=== PATIENT | male | born 1970 | race Caucasian/White ===

== ENCOUNTER 2019-04-28 14:02 | Emergency (ER) | payer MEDICAID, SELFPAY ==
[2019-04-28 14:05] VITALS: BP 181/101; PULSE 73; RESP 16; TEMP 36.2; O2SAT 96; BMI 38.7
--- NOTE | 2019-04-28 15:05 | ED.DEP ---
ED Disposition - Plan for ED Patient: Instructions: HEADACHE, Unspecified Referrals: NOT,DEFINED [Primary Care Provider] -
--- NOTE | 2019-04-28 15:05 | ED.VISSUMM ---
- ER Visit Summary Date of Service: 04/28/19 Chief Complaint: Headache History of Present Illness: The patient is a 48 M presenting with headache. He states that this started this morning it was gradual in onset. He states he has a history of cluster headaches and this feels similar. He is currently on his way to the [facility] in [place]. He is requesting Zofran, Toradol, Imitrex. He states this typically improves his headache. He denies nausea or vomiting. Denies fever. Denies other complaints. Physical Examination: Vitals are stable. Patient is afebrile. Alert no acute distress. HEENT exam is unremarkable. Neck is supple. No meningismus Lungs are clear and equal bilaterally. Heart is regular rate and rhythm. Extremities are unremarkable. Skin is warm and dry. No focal neurologic deficit. Remainder of exam is unremarkable. Emergency Department Course and Treatment: Patient was given Toradol, Zofran, Imitrex. He is requesting discharge home. He is advised to follow-up with his primary care physician. Advised return to ED for worsening complaints. Disposition: Discharge home Impression: Headache This note was generated with [employer] dictation software. It may contain incorrect words, spelling, and punctuation that were not noted in review of the chart prior to signing ED Disposition - Plan for ED Patient: Disposition: Home or Assisted Living Instructions: HEADACHE, Unspecified Referrals: NOT,DEFINED [NON-STAFF] -
[2019-04-28] MEDS: Ondansetron ODT 4 MG Tablet 8 MG PO (15:14)
[2019-04-28] MEDS: SUMAtriptan 6 MG/0.5 ML Vial SC (15:15)
[2019-04-28] MEDS: Ketorolac 30 MG/ML Syringe IM (15:15)
[2019-04-28 15:28] VITALS: BP 168/99; BP 171/89; PULSE 86; PULSE 91; RESP 16; O2SAT 100; O2SAT 97
== END 2019-04-28 15:28 | disposition home or self-care (01) ==
LOC: ED 15:27
PROVIDERS: Emergency Provider Emergency Medicine
DX: R51 Headache (principal)
CPT/HCPCS: 96372; 99283; J3030